=== PATIENT | female | born 1980 | race Caucasian/White ===

== ENCOUNTER 2016-03-15 12:38 | Emergency (ER) | payer MEDICAID ==
[~2016-03-15] VITALS: Ht 134.6 cm; Wt 58.0 kg
[~2016-03-15 12:38] MED LIST: CALC500T PO; FERR-31 PO; IBUP-1542 PO; MUPI22OI2 TOP
[2016-03-15 12:46] VITALS: Ht 134.6 cm; Wt 58.0 kg
[2016-03-15 14:57] LABS: URINE BLOOD (Dip) POC Negative (NEGATIVE)
--- NOTE | 2016-03-15 16:49 | RADRPT ---
PROCEDURE: XR Lumbar Spine. CLINICAL INDICATION: Low back pain. TECHNIQUE: 3 views of the lumbar spine available for review COMPARISON: None available FINDINGS: There is normal mineralization, architecture and alignment. No fractures or osseous lesions are mela ntified. No subluxation is identified. The disk spaces are unremarkable. The facet joints are unr emarkable. The soft tissues are unremarkable. IMPRESSION: Unremarkable lumbar spine x-ray. RPTAT: HGDB .Loki Bhagat MD, MD Date Time Electronically viewed and signed by .Loki Bhagat MD, on 03/15/2016 16:49 .B/
[2016-03-15] MEDS ORDERED: IBUP-1542 PO (17:05)
--- NOTE | 2016-03-15 17:15 | ERA ---
ER Documentation Chief Complaint Date/Time DATE: 03/15/16 TIME: 17:07 Chief Complaint LEFT FLANK, LEFT HIP, AND LEFT LEG PAIN HPI Patient is a 35-year-old female who presents to the emergency department with left-sided back pain, hip pain and leg pain. Patient states her symptoms started 1 day ago. Patient denies any trauma or falls. Patient states that the pain originates in her lower back and radiates down her left leg. Patient states the pain is burning in nature. Patient able to ambulate without any difficulty. She denies any numbness or tingling in between her legs, stool incontinence, urinary incontinence, IV drug use. She has not tried any medication yet. Patient denies any pain with urination, frequency, or hematuria. She denies any fevers, chills, chest pain, shortness of breath, abdominal pain. Patient states her last period was one month ago. ROS All systems reviewed and are negative except as per history of present illness. Medications Home Meds Active Scripts Ibuprofen* (Motrin*) 600 Mg Tab, 600 MG PO Q6, #30 TAB Prov:DELMER COSTA PA-C 03/15/16 Ibuprofen* (Motrin*) 600 Mg Tab, 600 MG PO Q6H Y for PAIN AND OR ELEVATED TEMP, #20 Prov:IMELDA GARZA MD 09/02/14 Mupirocin* (Bactroban*) 2% -22 Gram Oint...g., 1 APPLIC TOP BID for 7 Days, EA Prov:IMELDA GARZA MD 09/02/14 Reported Medications Ferrous Sulfate (Iron Supplement) 1 Tab Tablet, 1 TAB PO DAILY 05/18/14 Calcium Carbonate* (Os-Levi 500*) 1 Tab Tablet, 1 TAB PO DAILY, TAB 05/18/14 Allergies Allergies: Coded Allergies: No Known Allergy (Unverified , 07/19/14) PMhx/Soc Medical and Surgical Hx: pt denies Medical Hx, pt denies Surgical Hx History of Surgery: No Anesthesia Reaction: No Hx Neurological Disorder: No Hx Respiratory Disorders: No Hx Cardiac Disorders: No Hx Psychiatric Problems: No Hx Miscellaneous Medical Probl: No Hx Alcohol Use: No Hx Substance Use: No Hx Tobacco Use: No Smoking Status: Never smoker Physical Exam Vitals Vital Signs Date Time Temp Pulse Resp B/P Pulse Ox O2 Delivery O2 Flow Rate FiO2 1/14/17 12:46 98.0 60 18 109/59 98 Physical Exam GENERAL: Well-developed, well-nourished female. Appears in no acute distress. HEAD: Normocephalic, atraumatic. EYES: Pupils are equally reactive bilaterally. EOMs grossly intact. No conjunctival erythema. ENT: Moist mucous membranes. No uvula deviation. No kissing tonsils. NECK: Supple. No lymphadenopathy or thyromegaly. No meningismus. LUNG: Clear to auscultation bilaterally. No rhonchi, wheezing, rales or coarse breath sounds. HEART: Regular rate and rhythm. No murmurs, rubs or gallops. ABDOMEN: No scars, ecchymosis or rashes noted. Soft, nontender, and nondistended. Positive bowel sounds in all four quadrants. No rebound tenderness , no guarding. (-) McBurneys point tenderness. No CVA tenderness. HIP: No obvious deformity, ecchymosis, swelling. Hip is nontender to palpation. No hip instability. Patient was able to ambulate without any difficulty. BACK: No midline tenderness. Tender to palpation in the left lumbar paraspinous region. Positive left sided straight leg raise. EXTREMITIES: Equal pulses bilaterally. No peripheral clubbing, cyanosis or edema. No unilateral leg swelling. NEUROLOGIC: Alert and oriented. Moving all four extremities without any difficulty. Normal speech. Steady gait. SKIN: Normal color. Warm and dry. No rashes or lesions. Results 24 hrs Laboratory Tests Test 03/15/16 14:58 Bedside Urine Blood Negative Bedside Urine Glucose (UA) Negative Bedside Urine Ketones (LAB) Negative Bedside Urine Leukocyte Esterase (L Negative Bedside Urine Nitrite (LAB) Negative Bedside Urine Protein (LAB) Negative Bedside Urine pH (LAB) 5.5 Procedures/MDM ED COURSE: The patient was stable throughout ED course. I kept the patient and/or family informed of laboratory and diagnostic imaging results throughout the ED course. DIAGNOSTIC IMAGING: Read by radiologist. DIAGNOSTIC IMAGING REPORT Patient: GEOVANNA DAVID : 1980 Age: 35 Sex: F MR #: [id number] DOS: 03/15/16 1426 Ordering MD: DELMER COSTA PA-C Location: FTE Room/Bed: PROCEDURE: XR Lumbar Spine. CLINICAL INDICATION: Low back pain. TECHNIQUE: 3 views of the lumbar spine available for review COMPARISON: None available FINDINGS: There is normal mineralization, architecture and alignment. No fractures or osseous lesions are identified. No subluxation is identified. The disk spaces are unremarkable. The facet joints are unremarkable. The soft tissues are unremarkable. IMPRESSION: Unremarkable lumbar spine x-ray. RPTAT: HGDB .Loki Bhagat MD, MD Date Time Electronically viewed and signed by .Loki Bhagat MD, on 03/15/2016 16:49 .B/ CC: DELMER COSTA PA-C MEDICAL DECISION MAKING: This is a 35-year-old female who presents with left-sided back pain which radiates down her left leg. Vital signs were reviewed. Patient was afebrile. Patient denied any saddle anesthesia, urinary incontinence, bowel incontinence, IV drug use or recent trauma. X-ray of the lumbar spine was unremarkable. Urine test is negative. Urine dip is negative for acute infection or hematuria. Given these findings, the patients presentation is most consistent with sciatica vs lumbar sprain. I have a much lower clinical concern for cauda equine syndrome, spinal fractures, epidural abscess, spinal metastases, osteomyelitis, aortic dissection, ruptured or leaking AA, DJD, muscle spasm, pyelonephritis or nephrolithiasis. PRESCRIPTIONS: Ibuprofen DISCHARGE: At this time, patient is stable for discharge and outpatient management. RICE therapy and ROM exercises were advised to avoid stiffness. I have instructed the patient to follow-up with his/her primary care physician in 1-2 days. I have discussed with the patient the possibility of needing to see an epic cadence specialists for further workup and imaging if the pain persists. I have instructed the patient to promptly return to the ER for any new or worsening symptoms including increased pain, swelling, warmth, urinary incontinence, stool incontinence, weakness or numbness. The patient and/or family expressed understanding of and agreement with this plan. All questions were answered. Home care instructions were provided. Departure Diagnosis: Primary Impression: Lower back pain Qualified Code: M54.42 - Acute low back pain with left-sided sciatica, unspecified back pain laterality Condition: Stable Patient Instructions: Back Pain W/ Sciatica Referrals: [facility] YOU HAVE RECEIVED A MEDICAL SCREENING EXAM AND THE RESULTS INDICATE THAT YOU DO NOT HAVE A CONDITION THAT REQUIRES URGENT TREATMENT IN THE EMERGENCY DEPARTMENT. FURTHER EVALUATION AND TREATMENT OF YOUR CONDITION CAN WAIT UNTIL YOU ARE SEEN IN YOUR DOCTORS OFFICE WITHIN THE NEXT 1-2 DAYS. IT IS YOUR RESPONSIBILITY TO MAKE AN APPOINTMENT FOR FOLOW-UP CARE. IF YOU HAVE A PRIMARY DOCTOR --you should call your primary doctor and schedule an appointment IF YOU DO NOT HAVE A PRIMARY DOCTOR YOU CAN CALL OUR PHYSICIAN REFERRAL HOTLINE AT IF YOU CAN NOT AFFORD TO SEE A PHYSICIAN YOU CAN CHOSE FROM THE FOLLOWING [facility] [address] [facility]. [facility] [address] [facility] [address] [facility] [address] [facility] [address] [facility]. [facility] [address] [facility]. [facility] YOU HAVE RECEIVED A MEDICAL SCREENING EXAM AND THE RESULTS INDICATE THAT YOU DO NOT HAVE A CONDITION THAT REQUIRES URGENT TREATMENT IN THE EMERGENCY DEPARTMENT. FURTHER EVALUATION AND TREATMENT OF YOUR CONDITION CAN WAIT UNTIL YOU ARE SEEN IN YOUR DOCTORS OFFICE WITHIN THE NEXT 1-2 DAYS. IT IS YOUR RESPONSIBILITY TO MAKE AN APPOINTMENT FOR FOLOW-UP CARE. IF YOU HAVE A PRIMARY DOCTOR --you should call your primary doctor and schedule and appointment IF YOU DO NOT HAVE A PRIMARY DOCTOR YOU CAN CALL OUR PHYSICIAN REFERRAL HOTLINE AT . IF YOU CAN NOT AFFORD TO SEE A PHYSICIAN YOU CAN CHOSE FROM THE FOLLOWING [facility] INSTITUTIONS: [facility] [address] [place] [address] [facility] [address] [place] [address] [facility] [address] [place] [address] Additional Instructions: Llame al doctor MAANA y nadia fausto BARI PARA DENTRO DE 1-2 LANDERS.Dgale a la secretaria que nosotros le instruimos hacer esta bari.Avise o llame si hay condicin se empeora antes de la bari. Regresa aqui si peor o no mejor. DELMER COSTA PA-C Mar 15, 2016 17:15
[2016-03-15 18:08] VITALS: BP 128/65; PULSE 77; RESP 17
== END 2016-03-15 18:08 | disposition home or self-care (01) ==
LOC: FTE 12:38
DX: M54.42 Lumbago with sciatica, left side (principal)
CPT/HCPCS: 72100; 81003; Z7502; 99283

== ENCOUNTER 2016-03-21 07:53 | Emergency (ER) | payer MEDICAID ==
[~2016-03-21] VITALS: Wt 58.0 kg
--- NOTE | 2016-03-21 08:56 | ERD ---
ER Documentation Chief Complaint Date/Time DATE: 03/21/16 TIME: 08:54 Chief Complaint left back rash since 3 days. no drainage. HPI This patient is a 35-year-old Chilean-speaking only female presenting to the emergency department for rash on the left low back area for the past 3 days. She states the rash started out as red and then became vesicular in nature. She reports burning pain on sensation which she rates an 8 out of 10 on the pain scale. She reports increased stress in her life recently. There is unknown history of chickenpox at this time. The patient has had no fever, chills, nausea, vomiting, diarrhea, or urinary symptoms. ROS All systems reviewed and are negative except as per history of present illness. Medications Home Meds Active Scripts Naproxen* (Naprosyn*) 500 Mg Tablet, 500 MG PO BID Y for PAIN AND/OR INFLAMMATION, #20 TAB Prov:CARIDAD KENNEY PA-C 03/21/16 Hydrocodone/Acetaminophen ([place] 5-325 Tablet) 1 Each Tablet, 1 TAB PO Q6H Y for PAIN, #10 TAB Prov:CARIDAD KENNEY PA-C 03/21/16 Acyclovir* (Zovirax*) 800 Mg Tablet, 800 MG PO 5 TIMES DAILY for 7 Days, #35 TAB Prov:CARIDAD KENNEY PA-C 03/21/16 Ibuprofen* (Motrin*) 600 Mg Tab, 600 MG PO Q6, #30 TAB Prov:DELMER COSTA PA-C 03/15/16 Ibuprofen* (Motrin*) 600 Mg Tab, 600 MG PO Q6H Y for PAIN AND OR ELEVATED TEMP, #20 Prov:IMELDA GARZA MD 09/02/14 Mupirocin* (Bactroban*) 2% -22 Gram Oint...g., 1 APPLIC TOP BID for 7 Days, EA Prov:IMELDA GARZA MD 09/02/14 Reported Medications Ferrous Sulfate (Iron Supplement) 1 Tab Tablet, 1 TAB PO DAILY 05/18/14 Calcium Carbonate* (Os-Levi 500*) 1 Tab Tablet, 1 TAB PO DAILY, TAB 05/18/14 Allergies Allergies: Coded Allergies: No Known Allergy (Unverified , 03/21/16) PMhx/Soc Medical and Surgical Hx: pt denies Medical Hx, pt denies Surgical Hx History of Surgery: No Anesthesia Reaction: No Hx Neurological Disorder: No Hx Respiratory Disorders: No Hx Cardiac Disorders: No Hx Psychiatric Problems: No Hx Miscellaneous Medical Probl: No Hx Alcohol Use: No Hx Substance Use: No Hx Tobacco Use: No Smoking Status: Never smoker FmHx Noncontributory for chief complaint Physical Exam Vitals Vital Signs Date Time Temp Pulse Resp B/P Pulse Ox O2 Delivery O2 Flow Rate FiO2 03/21/16 07:57 64 20 114/71 99 Physical Exam INITIAL VITAL SIGNS: Reviewed by me. GENERAL: Alert and interactive. No acute distress. HEAD: Head is normocephalic and atraumatic. EYES: EOMI. No scleral icterus. No conjunctival injection. ENT: Moist mucosa. NECK: Supple. Full range of motion. RESPIRATORY: Normal respiratory effort. Clear breath sounds bilaterally. No wheezing, rales, or rhonchi. CV: Regular rate and rhythm. Normal S1 S2. No S3 or S4. No murmurs. ABDOMEN: Soft, non-distended, non-tender. No guarding. No rebound. No masses. EXTREMITIES: No deformity. SKIN: There is a 2 cm x 2 cm localized patch of vesicular eruptions on the mid left-sided back. There are no other visualized rashes similar to this 1 on the rest of the body. NEUROLOGIC: Alert and oriented x 4. Speech is normal. Moves all extremities equally. No motor or sensory deficits noted. Results 24 hrs Current Medications Medications (Trade) Dose Ordered Sig/Suleman Route PRN Reason Start Time Stop Time Status Last Admin Dose Admin Acetaminophen/ Hydrocodone Bitart (Mar[place] (5/325)) 1 tab ONCE ONCE PO 03/21/16 09:00 03/21/16 09:01 DC 03/21/16 09:06 Procedures/MDM EMERGENCY DEPARTMENT COURSE / MEDICAL DECISION MAKING: This is a 35-year-old female who comes to the emergency room secondary to complaints of rash with tingling, burning pain on the left mid back for 3 days. The patient was given p.o. Mariposa in the department for acute pain relief. She was feeling improved on reevaluation. The primary diagnosis is shingles polyneuropathy. Secondary diagnosis is shingles rash. I have low suspicion for severe dissemination of herpes zoster, herpes zoster ophthalmicus, and other emergencies at this time. Discharge: I have discussed the lab results and diagnostic findings with the patient and answered any questions or concerns. The patient was discharged with a prescription for acyclovir, Mariposa, and naproxen. The patient was advised to followup with their PMD in 1-2 days and to return to the Emergency Department if there are any new or worsening symptoms. The patient understood and agreed with the diagnosis, treatment and plan. The patient is stable for discharge at this time. Departure Diagnosis: Primary Impression: Shingles (herpes zoster) polyneuropathy Additional Impressions: Shingles Shingles rash Condition: Stable Patient Instructions: Shingles (Herpes Zoster) Additional Instructions: No mas mejor en 2-3 stokes, regresar. Mas peor en 24 horas, regresear rapidamente. Ir a doctor primario in 5-7 stokes. Usar instrucciones cuando rupinder medicamento. CARIDAD KENNEY PA-C Mar 21, 2016 08:56
[2016-03-21] MEDS ORDERED: HYDROCODONE/APAP (5/325) TAB PO ONE (09:00)
[2016-03-21] MEDS ORDERED: NAPR-260 PO (09:06)
[2016-03-21] MEDS ORDERED: HYDR-906 PO (09:06)
[2016-03-21] MEDS ORDERED: ACYC800T57 PO (09:06)
== END 2016-03-21 09:20 | disposition home or self-care (01) ==
LOC: FTE 07:53
DX: B02.23 Postherpetic polyneuropathy (principal)
CPT/HCPCS: Z7502; Z7610; 99284

== ENCOUNTER 2017-10-16 13:09 | Emergency (ER) | END 2017-10-16 16:36 | disposition home or self-care (01) ==

== ENCOUNTER 2017-12-29 15:27 | Emergency (ER) | END 2017-12-29 19:43 | disposition home or self-care (01) ==

== ENCOUNTER 2018-08-20 17:58 | Emergency (ER) | payer SELFPAY ==
[~2018-08-20] VITALS: Ht 147.3 cm; Wt 59.4 kg
[~2018-08-20 17:58] MED LIST changes: +ACET500C5 PO; +ACYC800T5 PO; +HYDR-4011 PO; +MECL12.574 PO; +NAPR-985 PO
[2018-08-20 18:10] VITALS: Ht 147.3 cm; Wt 59.4 kg
[2018-08-20] MEDS ORDERED: IBUPROFEN 600 MG TAB PO ONE (19:30)
[2018-08-20] MEDS ORDERED: IBUP-1561 PO (22:08)
--- NOTE | 2018-08-20 22:09 | ERD ---
ER Documentation Chief Complaint Chief Complaint PT C/O PAIN WHEN URINATING & DEFECATING ROS All systems reviewed and are negative except as per history of present illness. Medications Home Meds Active Scripts Ibuprofen* (Motrin*) 400 Mg Tab, 400 MG PO Q6H PRN for PAIN AND OR ELEVATED TEMP, #30 TAB Prov:MONAE GARRIDO DO 08/20/18 Ibuprofen* (Motrin*) 600 Mg Tab, 600 MG PO Q6, #15 TAB Prov:TAYLOR AYERS MD 12/29/17 Acetaminophen* (Tylophen*) 500 Mg Capsule, 1 CAP PO Q6H PRN for PAIN AND OR ELEVATED TEMP, #30 CAP Prov:DENA HOLT PA-C 10/16/17 Meclizine Hcl* (Antivert*) 12.5 Mg Tab, 12.5 MG PO Q6H PRN for DIZZINESS, #20 TAB Prov:DENA HOLT PA-C 10/16/17 Naproxen* (Naprosyn*) 500 Mg Tablet, 500 MG PO BID PRN for PAIN AND/OR INFLAMMATION, #20 TAB Prov:CARIDAD KENNEY PA-C 03/21/16 Hydrocodone/Acetaminophen ([place] 5-325 Tablet) 1 Each Tablet, 1 TAB PO Q6H PRN for PAIN, #10 TAB Prov:CARIDAD KENNEY PA-C 03/21/16 Acyclovir* (Zovirax*) 800 Mg Tablet, 800 MG PO 5 TIMES DAILY for 7 Days, #35 TAB Prov:CARIDAD KENNEY PA-C 03/21/16 Ibuprofen* (Motrin*) 600 Mg Tab, 600 MG PO Q6, #30 TAB Prov:DELMER COSTA PA-C 03/15/16 Ibuprofen* (Motrin*) 600 Mg Tab, 600 MG PO Q6H PRN for PAIN AND OR ELEVATED TEMP, #20 Prov:IMELDA GARZA MD 09/02/14 Mupirocin* (Bactroban*) 2% -22 Gram Oint...g., 1 APPLIC TOP BID for 7 Days, EA Prov:IMELDA GARZA MD 09/02/14 Reported Medications Ferrous Sulfate (Iron Supplement) 1 Tab Tablet, 1 TAB PO DAILY 3/19/15 Calcium Carbonate* (Os-Levi 500*) 1 Tab Tablet, 1 TAB PO DAILY, TAB 05/18/14 Allergies Allergies: Coded Allergies: No Known Allergy (Unverified , 10/16/17) PMhx/Soc Medical and Surgical Hx: pt denies Medical Hx, pt denies Surgical Hx History of Surgery: No Anesthesia Reaction: No Hx Neurological Disorder: No Hx Respiratory Disorders: No Hx Cardiac Disorders: No Hx Psychiatric Problems: No Hx Miscellaneous Medical Probl: No Hx Alcohol Use: No Hx Substance Use: No Hx Tobacco Use: No Smoking Status: Never smoker Physical Exam Vitals Vital Signs Date Temp Pulse Resp B/P (MAP) Pulse Ox O2 O2 Flow FiO2 Time Delivery Rate 08/20/18 98.0 55 16 130/64 99 18:10 (86) Physical Exam Const: No acute distress Head: Atraumatic Eyes: Normal Conjunctiva ENT: Normal External Ears, Nose and Mouth. Neck: Full range of motion. No meningismus. Resp: Clear to auscultation bilaterally Cardio: Regular rate and rhythm, no murmurs Abd: Soft, non tender, non distended. Normal bowel sounds Skin: No petechiae or rashes Back: No midline or flank tenderness Ext: No cyanosis, or edema Neur: Awake and alert Psych: Normal Mood and Affect Result Diagram: 08/20/18192208/20/181922 Results 24 hrs Laboratory Tests Test 08/20/18 19:23 08/20/18 19:28 White Blood Count 8.3 10^3/ul Red Blood Count 4.36 10^6/ul Hemoglobin 13.3 g/dl Hematocrit 40.2 % Mean Corpuscular Volume 92.2 fl Mean Corpuscular Hemoglobin 30.5 pg Mean Corpuscular Hemoglobin Concent 33.1 g/dl Red Cell Distribution Width 13.9 % Platelet Count 212 10^3/UL Mean Platelet Volume 10.0 fl Immature Granulocytes % 0.100 % Neutrophils % 56.6 % Lymphocytes % 34.0 % Monocytes % 7.6 % Eosinophils % 1.2 % Basophils % 0.5 % Nucleated Red Blood Cells % 0.0 /100WBC Immature Granulocytes # 0.010 10^3/ul Neutrophils # 4.7 10^3/ul Lymphocytes # 2.8 10^3/ul Monocytes # 0.6 10^3/ul Eosinophils # 0.1 10^3/ul Basophils # 0.0 10^3/ul Nucleated Red Blood Cells # 0.0 10^3/ul Urine Color YELLOW Urine Clarity CLEAR Urine pH 6.0 Urine Specific [place] 1.014 Urine Ketones NEGATIVE mg/dL Urine Nitrite NEGATIVE mg/dL Urine Bilirubin NEGATIVE mg/dL Urine Urobilinogen NEGATIVE mg/dL Urine Leukocyte Esterase NEGATIVE Corey/ul Urine Hemoglobin NEGATIVE mg/dL Urine Glucose NEGATIVE mg/dL Urine Total Protein NEGATIVE mg/dl Sodium Level 139 mmol/L Potassium Level 3.8 mmol/L Chloride Level 106 mmol/L Carbon Dioxide Level 27 mmol/L Anion Gap 6 Blood Urea Nitrogen 14 mg/dl Creatinine 0.61 mg/dl Est Glomerular Filtrat Rate mL/min > 60 mL/min Glucose Level 81 mg/dl Calcium Level 8.8 mg/dl Total Bilirubin 0.3 mg/dl Direct Bilirubin 0.00 mg/dl Indirect Bilirubin 0.3 mg/dl Aspartate Amino Transf (AST/SGOT) 28 IU/L Alanine Aminotransferase (ALT/SGPT) 20 IU/L Alkaline Phosphatase 73 IU/L Total Protein 7.8 g/dl Albumin 4.2 g/dl Globulin 3.60 g/dl Albumin/Globulin Ratio 1.16 Lipase 56 U/L POC Beta HCG, Qualitative NEGATIVE Current Medications Medications Dose Sig/Suleman Start Time Status Last (Trade) Ordered Route PRN Stop Time Admin Dose Reason Admin Ibuprofen 600 mg ONCE ONCE 08/20/18 DC 08/20/18 (Motrin) PO 19:30 19:22 08/20/18 19:34 Departure Diagnosis: Primary Impression: Uterine fibroid Uterine leiomyoma location: unspecified location Qualified Codes: D25.9 - Leiomyoma of uterus, unspecified Condition: Fair Patient Instructions: Uterine Fibroids Referrals: [facility] YOU HAVE RECEIVED A MEDICAL SCREENING EXAM AND THE RESULTS INDICATE THAT YOU DO NOT HAVE A CONDITION THAT REQUIRES URGENT TREATMENT IN THE EMERGENCY DEPARTMENT. FURTHER EVALUATION AND TREATMENT OF YOUR CONDITION CAN WAIT UNTIL YOU ARE SEEN IN YOUR DOCTORS OFFICE WITHIN THE NEXT 1-2 DAYS. IT IS YOUR RESPONSIBILITY TO MAKE AN APPOINTMENT FOR FOLOW-UP CARE. IF YOU HAVE A PRIMARY DOCTOR --you should call your primary doctor and schedule an appointment IF YOU DO NOT HAVE A PRIMARY DOCTOR YOU CAN CALL OUR PHYSICIAN REFERRAL HOTLINE AT IF YOU CAN NOT AFFORD TO SEE A PHYSICIAN YOU CAN CHOSE FROM THE FOLLOWING [facility] [phone] [address] [facility] [address] [facility]. [facility] [address] [facility]. [facility] [phone] [address] [facility]. [facility] [address] [facility]. [facility] [address] KYLIE BOWMAN CLIENT SERVER DEVEL[place] [address] [facility] [address] [place] [address] OFFICE FAX , [facility] [address] [place] [address] [address]. MAURER WILSON [address] [place] [address] DR GLEZ, [facility] [address] [facility], [address], [facility] [address] [address] [facility] [address] [place] [address] [facility] [address] [place] [address] [phone] [address] [facility] [address] - AMEYA MIX [address], [facility] [address] [address]GUETA [address]ANCE [address] [facility]. [address], [place] [address] [address] YEUNG, [facility] [address] [place] [address] Additional Instructions: Ta mcqueen doctor MARLENE y nadia fausto BARI PARA DENTRO DE 1-2 LANDERS.Dgale a la secretaria que nosotros le instruimos hacer esta bari.Avise o llame si hay condicin se empeora antes de la bari. Regresa aqui si peor o no mejor. MONAE GARRIDO DO Aug 20, 2018 22:09
[2018-08-20 22:13] VITALS: BP 113/72; PULSE 54; RESP 18
== END 2018-08-20 22:14 | disposition home or self-care (01) ==
LOC: FTE 17:58
DX: D25.9 Leiomyoma of uterus, unspecified (principal); R10.2 Pelvic and perineal pain
CPT/HCPCS: 36415; 76775; 76830; 76856; 80053; 81003; 81025; 83690; 85025